=== PATIENT | female | born 1955 | race Caucasian/White ===

== ENCOUNTER 2016-09-15 19:17 | Emergency (ER) | payer BC ==
[2016-09-15 19:36] VITALS: RESP 18; TEMP 98.7
--- NOTE | 2016-09-15 19:48 | ED ---
General Adult HPI - General Chief complaint: Fall Stated complaint: Fall/foot & wrist pain Time Seen by Provider: 09/15/16 19:37 Source: patient, family, RN notes reviewed Mode of arrival: ambulatory Limitations: no limitations - History of Present Illness Initial comments: Patient is a 61-year-old female who presents emergency room today with chief complaint of fall occurred approximately one hour ago. Does admit that she was rehana taping something did not see a step fell down onto the right side. Does admit that she injured her right foot and right wrist. Doesn't smoke of the right eyebrow. Denies any other complaints or associated symptoms. Denies any loss consciousness. Patient denies any neck pain back pain. Denies any other complaints or associated symptoms. Does admit that her right foot and right wrist worse with certain movements. Patient denies any recent fever, chills, shortness of breath, chest pain, back pain, abdominal pain, nausea or vomiting, numbness or tingling, dysuria or hematuria, constipation or diarrhea, headaches or visual changes, or any other complaints. - Related Data Home Medications Medication Instructions Recorded Confirmed Atorvastatin Calcium [Lipitor] 20 mg PO QAM 09/15/16 09/15/16 Cholecalciferol [Vitamin D3] 1,000 unit PO DAILY 09/15/16 09/15/16 Ubidecarenone [Co Q-10] 100 mg PO DAILY 09/15/16 09/15/16 Vitamin E (Dl,Tocopheryl Acet) 400 unit PO DAILY 09/15/16 09/15/16 [Vitamin E] Previous Rx's Medication Instructions Recorded Hydrocodone/Acetaminophen [[place] 1 each PO Q6HR PRN #20 tab 09/15/16 5-325] Allergies Allergy/AdvReac Type Severity Reaction Status Date / Time codeine AdvReac Hallucinati Verified 09/15/16 20:07 ons Review of Systems ROS Statement: Those systems with pertinent positive or pertinent negative responses have been documented in the HPI. ROS Other: All systems not noted in ROS Statement are negative. Past Medical History Past Medical History: Hyperlipidemia History of Any Multi-Drug Resistant Organisms: None Reported Past Surgical History: Tonsillectomy Past Psychological History: No Psychological Hx Reported Smoking Status: Never smoker Past Alcohol Use History: Occasional Past Drug Use History: None Reported General Exam - General Exam Comments Initial Comments: General: The patient is awake and alert, in no distress, and does not appear acutely ill. Eye: Pupils are equal, round and reactive to light, extra-ocular movements are intact. No nystagmus. There is normal conjunctiva bilaterally. No signs of icterus. Ears, nose, mouth and throat: There are moist mucous membranes and no oral lesions. Neck: The neck is supple, there is no tenderness or JVD. Cardiovascular: There is a regular rate and rhythm. No murmur, rub or gallop is appreciated. Respiratory: Lungs are clear to auscultation, respirations are non-labored, breath sounds are equal. No wheezes, stridor, rales, or rhonchi. Musculoskeletal: Patient does have normal appearance of her right hand no sign of swelling bruising or deformity. Patient does have mild tenderness over the distal right ulna. Shows good range of motion. No tenderness down into the digits to pulses equal bilaterally 2+. Patient does have normal appearance of her foot with some bruising swelling over the top. Does have tenderness to the first and second proximal metatarsal. No tenderness to the right ankle or right knee. No tenderness to the cervical, thoracic, lumbar spine. Neurological: A&O x 3. CN II-XII intact, There are no obvious motor or sensory deficits. Coordination appears grossly intact. Speech is normal. Skin: Skin is warm and dry and no rashes or lesions are noted. Psychiatric: Cooperative, appropriate mood & affect, normal judgment. Limitations: no limitations Course Vital Signs 09/15/16 09/15/16 19:30 20:49 Temperature 98.7 F Pulse Rate 94 88 Respiratory 18 18 Rate Blood Pressure 140/74 142/85 O2 Sat by Pulse 99 100 Oximetry Medical Decision Making - Medical Decision Making X-ray reviewed does show evidence of Lisfranc fracture. Patient's CT reviewed and shows similar findings. Case was discussed with attending physician who discussed case with orthopedics on-call Dr. Herrera who recommends a padded posterior short leg splint. Splint has been placed short leg posterior OCL. Neurovascular rechecked and intact. Patient given crutches. Pain medication go home with. Advised follow-up with orthopedics tomorrow morning. Disposition Clinical Impression: Lisfranc fracture Disposition: HOME SELF-CARE Condition: Good Instructions: Foot Fracture in Adults (ED) Additional Instructions: Please follow-up with orthopedics tomorrow morning. Please continue ice elevate. The splint placed and use crutches with nonweightbearing until follow- up. Please return to emergency room for any other concerns. Prescriptions: Hydrocodone/Acetaminophen [[place] 5-325] 1 each PO Q6HR PRN #20 tab PRN Reason: Pain Referrals: Isma Cowart MD [Primary Care Provider] - 1-2 days Gonzalo Herrera MD [STAFF PHYSICIAN] - 1-2 days Time of Disposition: 21:21
--- NOTE | 2016-09-15 20:08 | XR ---
EXAMINATION TYPE: XR wrist complete RT DATE OF EXAM: 09/15/2016 CLINICAL HISTORY: Fall injury with pain. TECHNIQUE: Frontal, lateral, scaphoid, and oblique images of the right wrist are obtained. COMPARISON: None FINDINGS: Osseous structures are demineralized. There is no acute fracture/dislocation evident in th e right wrist. The joint spaces in the right wrist appear within normal limits. Subchondral cystic c hange in distal ulna and lunate bone is felt present. The overlying soft tissue appears unremarkable . IMPRESSION: There is no acute fracture or dislocation in the right wrist.
--- NOTE | 2016-09-15 20:08 | XR ---
EXAMINATION TYPE: XR foot complete RT DATE OF EXAM: 09/15/2016 CLINICAL HISTORY: Fall injury with pain. TECHNIQUE: Frontal, lateral, and oblique images of the right foot are obtained. COMPARISON: None FINDINGS: There is suspicious widening at base of first metatarsal relative to the second metatarsal . Some ill-defined ossification is present at this level. Osseous structures are demineralized. Flexi on in the toes is noted. There is positioning distal fifth toe is seen. The overlying soft tissue ap pears unremarkable. IMPRESSION: There is suspected Lisfranc divergent injury midfoot level. Orthopedic follow-up advised . Consider MRI evaluation.
[2016-09-15] MEDS ORDERED: HYDROcodone/APAP 5-325MG 1 EACH TAB PO STA (20:43)
[2016-09-15 20:50] VITALS: BP 142/85; PULSE 88
--- NOTE | 2016-09-15 20:50 | CT ---
EXAMINATION TYPE: CT foot RT wo con DATE OF EXAM: 09/15/2016 COMPARISON: Same day right foot x-ray. HISTORY: Fall today. Medial to mid foot pain. CT DLP: 228.00 mGycm Automated exposure control for dose reduction was used. FINDINGS: Correlating with x-ray abnormality there is displacement of first metatarsal laterally from medial cu neiform. There is abnormal widening between first and second metatarsals. There are multiple small os sific fracture fragments identified. There is suspected some comminuted acute at base of second and third metatarsals. Fracture through the plantar aspect of the middle cuneiform is present. Additional comminuted fracture through distal lateral cuneiform is likely present. All findings correlate with x-ray of acute divergent Lisfranc fracture injury. Associated soft tissue swelling is seen. IMPRESSION: ACUTE MID FOOT LISFRANC DIVERGENT FRACTURE INJURY NOTED DETAILED ABOVE. ORTHOPEDIC REFERRAL ADVISE Ming
== END 2016-09-15 21:31 | disposition home or self-care (01) ==
LOC: EC 19:17
DX: S92.201A Fracture of unspecified tarsal bone(s) of right foot, initial encounter for closed fracture (principal); S69.91XA Unspecified injury of right wrist, hand and finger(s), initial encounter; E78.5 Hyperlipidemia, unspecified; Z79.899 Other long term (current) drug therapy; Z88.5 Allergy status to narcotic agent; W18.39XA Other fall on same level, initial encounter; Y93.41 Activity, dancing
CPT/HCPCS: 29515; 99284

== ENCOUNTER 2016-09-29 12:24 | Day surgery (SDC) | payer BC ==
[2016-09-24 15:05] VITALS: BMI 26.6
--- NOTE | 2016-09-24 16:23 | CONS ---
CHIEF COMPLAINT: Consultation regarding medical evaluation. HISTORY OF PRESENT ILLNESS: This is a 61-year-old female who is scheduled to undergo right foot surgery. The patient injured her foot on 09/15/16. The patient has been followed by Dr. Hoyt for a right foot Lisfranc fracture dislocation injury to the right foot. The patient also has sprained right hand. No fractures in her hand. It was a freak accident. She was taking some pictures of the butts, slipped and fell. Did not lose consciousness. Did injure her face due to her glasses. No chest injury. The patient, since this fall, has had no other complications or problems. PAST MEDICAL HISTORY: Significant for history of hyperlipidemia on medical therapy, history of diverticulosis. Otherwise, no history of any lung disease, liver disease, kidney disease, ulcers, TB, hepatitis. No history of any rheumatic fever, myocardial infarction or CVA. PAST SURGICAL HISTORY: Significant for left plantar wart surgery and some skin lesion excisions. Previous colonoscopy 2005. She does get a mammogram annually which she is past due this year. PERSONAL HISTORY: Nonsmoker. Alcohol occasional. VACCINATIONS: Recently completed. ALLERGIES: Codeine causes her confusion. MEDICATIONS: Include Lipitor 20 mg daily, vitamin D and fish oil. SOCIAL HISTORY: Patient . She runs a business. FAMILY MEDICAL HISTORY: Father at age of 79. He had hypertension, CVA, Ca of the prostate. Mother at age of 80. She had acoustic neuroma. A brother 74 with a history of coronary artery disease. A brother 66 with diabetes and Ca of the prostate. A sister 69 with a previous history of pulmonary embolism, doing okay. A sister 64 in good health. Patient has a son 31 in good health. REVIEW OF SYSTEMS: NEURO: Denies any headaches, dizziness, double vision, blurred vision. No symptoms of TIA, syncope or seizures. PSYCH: No anxiety. CARDIAC: No chest pain, angina, palpitations. RESPIRATORY: No shortness of breath, cough, hemoptysis. GI: No nausea, vomiting, abdominal pain, diarrhea. Did have some constipation with pain medication which resolved. : No symptoms of dysuria, hematuria, urgency or frequency. EXTREMITIES: Denies pain. At present she has the right foot in an immobilizer and right wrist in an immobilizer. CONSTITUTIONAL: No fever or chills. SKIN: No open sores or recent infections. ORAL: Dental maintained with no infections. Intact dentition. HEARING: Adequate. EYES: Adequate vision. MUSCULOSKELETAL: Mild arthritic chronic symptoms. PHYSICAL EXAMINATION: Pleasant female in no distress. VITAL SIGNS: Reveal heart rate 95, blood pressure 130/80, afebrile, respirations 16. HEENT: Normocephalic. Neck is supple. Pupils reactive. Nose is clear. Oral cavity is moist. Ears reveal no drainage. Dentition well maintained. NECK: Reveals no JVD, carotid bruits or thyromegaly. CHEST: Clear to auscultation and percussion. CARDIAC: Normal S1/S2. No gallops, murmurs or rubs. ABDOMEN: Soft. No palpable masses. Bowel sounds normal. No organomegaly, no abdominal bruits. EXTREMITIES: Right lower extremity in an immobilizing cast. The toes are nice, warm and intact sensations. Left leg and upper extremity have good range of motion. LABORATORY ASSESSMENT: EKG which reveals sinus rhythm, 95, otherwise no acute changes. Possible left atrial abnormality. Lab work is pending. ASSESSMENT: 1. Hyperlipidemia, on medical therapy. 2. Status post fall. 3. Fracture, right foot. PLAN: Patient at present is stable to undergo the planned surgical procedure. Labs drawn today and sent in, will be checked prior to surgery. Patient's condition discussed with the patient. Prognosis guarded. MTDD
[~2016-09-29 12:24] MED LIST: DEXAMETHASONE SOD PHOSPHATE 10 MG/ML 1 ML VIAL IV ONE; HYDROmorphone 1 MG/ML 1 ML SYRINGE IVP PRN; MIDAZOLAM 2 MG/2 ML VIAL IV PRN; ONDANSETRON 4 MG/2 ML VIAL IVP ONE; SCOPOLAMINE 1.5MG/72HR PATCH TRANSDERM ONE; ceFAZolin 2 GM in SODIUM CHLORIDE 0.9% 100 ML IVPB ONE
[2016-09-29] MEDS: LACTATED RINGERS 1,000 ML IV SCH (13:07)
[2016-09-29] MEDS ORDERED: LIDOCAINE 1% 20 ML VIAL (10MG/ML) FOR IV START INTRADERMA ONE (13:13)
[2016-09-29] MEDS ORDERED: PROPOFOL 10 MG/ML 20 ML VIAL IV ONE (14:07)
[2016-09-29] MEDS ORDERED: fentaNYL (PF) 50 MCG/ML 2 ML AMP ONE (14:07)
[2016-09-29] MEDS ORDERED: KETAMINE 10 MG/ML 20 ML VIAL ONE (14:07)
[2016-09-29] MEDS ORDERED: NEOSTIGMINE 1 MG/ML 10 ML VIAL ONE (14:07)
[2016-09-29] MEDS ORDERED: ROCURONIUM BROMIDE 10 MG/ML 10 ML VIAL IV ONE (14:07)
[2016-09-29] MEDS ORDERED: HYDROmorphone (PF) 1 MG/ML ONE (14:07)
[2016-09-29] MEDS ORDERED: LIDOCAINE 1% INJ 10MG/ML (20 ML MDV) ONE (14:07)
[2016-09-29] MEDS ORDERED: GLYCOPYRROLATE 0.2 MG/ML 2 ML VIAL ONE (14:07)
[2016-09-29] MEDS ORDERED: MIDAZOLAM 2 MG/2 ML VIAL ONE (14:07)
[2016-09-29] MEDS ORDERED: SUCCINYLCHOLINE CHLORIDE 100 MG/5 ML SYR IV ONE (14:07)
[2016-09-29] MEDS ORDERED: ceFAZolin 1,000 MG in SODIUM CHLORIDE 0.9% 1,000 ML IRRIGATION ONE (14:41)
[2016-09-29] MEDS ORDERED: LACTATED RINGERS 1,000 ML IV ONE (15:15)
[2016-09-29] MEDS ORDERED: HYDROcodone/APAP 5-325MG 1 EACH TAB PO PRN (18:12)
[2016-09-29] MEDS ORDERED: DIAZEPAM 5 MG TAB PO PRN (18:12)
[2016-09-29] MEDS ORDERED: HYDROmorphone 1 MG/ML 1 ML SYRINGE IVP PRN ×2 (18:12)
[2016-09-29] MEDS ORDERED: NALOXONE 0.4 MG/ML 1 ML VIAL IV PRN (18:12)
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
[2016-09-29] MEDS ORDERED: ROPIVACAINE 5 MG/ML 30 ML VIAL MISCELLANE ONE (18:47)
--- NOTE | 2016-09-29 19:03 | P.ONQ ---
Anesthesiology Proc Note - PNB - Peripheral Nerve Block Performed Right Popliteal Indication: Acute Post-Operative Pain, Dx/Pain Location (braksma) Sedation Type: Sedate with meaningful contact maintained Preparation: Sterile Prep Position: Supine (lateral) Needle Types: Other (see comment) (arrow) Needle Size: 50mm (2") Needle Gauge: 20 Technique: Ultrasound Injectate: 0.5% Ropivacaine (see comment for volume) (22cc) Blood Aspirated: No Pain Paresthesia on Injection Noted: No Resistance on Injection: Normal Events: Uneventful and Well Tolerated
--- NOTE | 2016-09-29 19:09 | XR ---
EXAMINATION TYPE: XR foot complete RT DATE OF EXAM: 09/29/2016 COMPARISON: 09/15/2016 HISTORY: Open reduction internal fixation of a right Lisfranc fracture of the first, second and third metatarsals. TECHNIQUE: 2.02 minutes of fluoroscopy time was utilized and 10 images were taken although not submit gasper for interpretation. FINDINGS/IMPRESSION: Intraoperative fluoroscopy performed by an outside department.
--- NOTE | 2016-09-29 19:19 | FL ---
EXAMINATION TYPE: XR foot complete RT DATE OF EXAM: 09/29/2016 COMPARISON: 09/15/2016 HISTORY: Open reduction internal fixation of a right Lisfranc fracture of the first, second and third metatarsals. TECHNIQUE: 2.02 minutes of fluoroscopy time was utilized and 10 images were taken although not submit gasper for interpretation. FINDINGS/ IMPRESSION: Intraoperative fluoroscopy performed by an outside department
[2016-09-29] MEDS ORDERED: SENNOSIDES-DOCUSATE SODIUM 1 EACH TAB PO SCH (21:00)
[2016-09-29] MEDS: SODIUM CHLORIDE 0.9% 1,000 ML IV SCH (23:22)
[2016-09-29] MEDS: CALCIUM CARBONATE 500 MG CHEWABLE PO SCH (23:23)
[2016-09-29] MEDS: ceFAZolin 2 GM in SODIUM CHLORIDE 0.9% 100 ML IVPB SCH (23:24)
[2016-09-30] MEDS: ceFAZolin 2 GM in SODIUM CHLORIDE 0.9% 100 ML IVPB SCH (08:26)
[2016-09-30] MEDS: CALCIUM CARBONATE 500 MG CHEWABLE PO SCH (08:26)
[2016-09-30 08:34] VITALS: BP 108/54; PULSE 83; RESP 18; TEMP 98
[2016-09-30] MEDS ORDERED: ENOXAPARIN 40 MG/0.4 ML SYRINGE SQ SCH (09:00)
[2016-09-30] MEDS ORDERED: ATORVASTATIN 20 MG TAB PO SCH (09:00)
--- NOTE | 2016-09-30 10:08 | P.DS ---
Providers Expected date of discharge: 09/30/16 Attending physician: Calin Hoyt Primary care physician: Isma Cowart - Discharge Diagnosis(es) (1) Lisfranc fracture Current Visit: No Status: Acute Hospital Course: This is a 61-year-old female who sustained a closed right Lisfranc fracture dislocation to the right foot after a fall. The patient presents for evaluation. After discussion and consideration patient elects to proceed with ORIF of second and third tarsometatarsal joint for unstable Lisfranc injury. The patient is seen preoperatively by Dr. Hoyt and cleared for surgery. Patient is admitted to [facility] on 09/29/2016 for ORIF of second and third tarsometatarsal joint for unstable Lisfranc injury. The procedures performed without complication or sequelae. The patient is doing well postoperatively. Labs and vital signs are stable on day of discharge. On day of discharge patient's splint to the right lower extremity is intact. Capillary refill to the toes is normal at less than 2 seconds. Sensation intact. Neurovascular status to the right lower extremity is intact. Patient is discharged home in good condition. Please see med rec for accurate list of home medications. Plan - Discharge Summary New Discharge Prescriptions: New Aspirin 325 mg PO BID #60 tab Docusate [Colace] 100 mg PO DAILY #20 capsule HYDROcodone/APAP 7.5-325MG [[place] 7.5-325] 1 - 2 tab PO Q4-6H PRN #60 tab PRN Reason: Pain No Action Atorvastatin Calcium [Lipitor] 20 mg PO QAM Cholecalciferol [Vitamin D3] 1,000 unit PO DAILY Vitamin E (Dl,Tocopheryl Acet) [Vitamin E] 400 unit PO DAILY Ubidecarenone [Co Q-10] 100 mg PO DAILY Hydrocodone/Acetaminophen [[place] 5-325] 1 each PO Q6HR PRN #20 tab PRN Reason: Pain HYDROcodone/APAP 10-325MG [[place] 10-325] 1 tab PO Q6H PRN PRN Reason: Pain Discharge Medication List Atorvastatin Calcium [Lipitor] 20 mg PO QAM 09/15/16 [History] Cholecalciferol [Vitamin D3] 1,000 unit PO DAILY 09/15/16 [History] Hydrocodone/Acetaminophen [[place] 5-325] 1 each PO Q6HR PRN #20 tab 09/15/16 [Rx] Ubidecarenone [Co Q-10] 100 mg PO DAILY 09/15/16 [History] Vitamin E (Dl,Tocopheryl Acet) [Vitamin E] 400 unit PO DAILY 09/15/16 [History] HYDROcodone/APAP 10-325MG [[place] 10-325] 1 tab PO Q6H PRN 09/24/16 [History] Aspirin 325 mg PO BID #60 tab 09/30/16 [Rx] Docusate [Colace] 100 mg PO DAILY #20 capsule 09/30/16 [Rx] HYDROcodone/APAP 7.5-325MG [[place] 7.5-325] 1 - 2 tab PO Q4-6H PRN #60 tab [Rx] Follow up Appointment(s)/Referral(s): Calin Hoyt MD [Medical Doctor] - 10 Days Activity/Diet/Wound Care/Special Instructions: Please stay nonweightbearing to the right lower extremity. Please keep splint clean, dry and intact. Rest, ice and elevate the right lower extremity. Please take all medications as prescribed. Please call [facility] with any questions or concerns. [phone] Discharge Disposition: HOME SELF-CARE
[2016-09-30] MEDS: LACTATED RINGERS 1,000 ML IV SCH (10:20)
[2016-09-30] MEDS: SODIUM CHLORIDE 0.9% 1,000 ML IV SCH (10:21)
[2016-09-30] MEDS ORDERED: CHOLECALCIFEROL 1,000 UNIT TAB PO SCH (12:00)
[2016-09-30] MEDS ORDERED: MULTIVITAMINS, THERA 1 EACH TAB PO SCH (12:00)
== END 2016-09-30 12:25 | disposition home or self-care (01) ==
LOC: OR 12:24 → 5ONC 18:03 → OR 09-30 12:25
PROVIDERS: ATTEND Orthopaedic Surgery
DX: S92.311A Displaced fracture of first metatarsal bone, right foot, initial encounter for closed fracture (principal); S92.321A Displaced fracture of second metatarsal bone, right foot, initial encounter for closed fracture; S92.331A Displaced fracture of third metatarsal bone, right foot, initial encounter for closed fracture; W01.0XXA Fall on same level from slipping, tripping and stumbling without subsequent striking against object, initial encounter; Y93.89 Activity, other specified; Y92.828 Other wilderness area as the place of occurrence of the external cause; M24.571 Contracture, right ankle; M85.871 Other specified disorders of bone density and structure, right ankle and foot; S63.91XD Sprain of unspecified part of right wrist and hand, subsequent encounter; E78.5 Hyperlipidemia, unspecified; Z79.1 Long term (current) use of non-steroidal anti-inflammatories (NSAID); Z79.891 Long term (current) use of opiate analgesic; Z79.899 Other long term (current) drug therapy; Z88.5 Allergy status to narcotic agent
CPT/HCPCS: 97161; 82306; 73630; 27687; 28485 ×3; C1713; J2250; J1100; J2710; J0690 ×3; J2405; J2001; J1650; J3010; J1170; J2795; J0330; J2704

== ENCOUNTER → 2017-11-03 | Outpatient (CLI) | payer BC ==
--- NOTE | 2017-11-03 12:26 | US ---
EXAMINATION TYPE: US carotid duplex BILAT DATE OF EXAM: 11/03/2017 COMPARISON: NONE CLINICAL HISTORY: I65.29 Carotid Atherosclerosis. EXAM MEASUREMENTS: RIGHT: Peak Systolic Velocity (PSV) cm/sec ----- Right CCA: 170.6 ----- Right ICA: 161.7 ----- Right ECA: 143.1 ICA/CCA ratio: 0.9 RIGHT: End Diastole cm/sec ----- Right CCA: 26.8 ----- Right ICA: 57.2 ----- Right ECA: 15.3 LEFT: Peak Systolic Velocity (PSV) cm/sec ----- Left CCA: 101.1 ----- Left ICA: 101.6 ----- Left ECA: 150.8 ICA/CCA ratio: 1.0 LEFT: End Diastole cm/sec ----- Left CCA: 20.4 ----- Left ICA: 32.1 ----- Left ECA: 13.7 VERTEBRALS (direction of flow): Right Vertebral: Antegrade Left Vertebral: Antegrade Rhythm: Normal Tortuous ICAs visualized bilaterally. Mild amount of plaque visualized bilateral bulbs. Elevated velo cities visualized in right distal CCA, right bulb, right distal ICA, and right ECA. Elevated velociti es visualized in the left ECA. IMPRESSION: 1. Mild atherosclerotic changes with no significant hemodynamic stenosis. Criteria for Assigning % of Stenosis / Diameter reduction (Estimation based on the indirect measurements of the internal carotid artery velocities (ICA PSV). 1. Normal (no stenosis)=ICA PSV < 125 cm/s: ratio < 2.0: ICA EDV<40 cm/s. 2. Less than 50% stenosis=ICA PSV < 125 cm/s: ratio < 2.0: ICA EDV<40 cm/s. 3. 50 to 69% stenosis=ICA PSV of 125 to 230 cm/s: ration 2.0 ? 4.0: ICA EDV 40-100 cm/s. 4. Greater than 70% stenosis to near occlusion= ICA PSV > 230 cm/s: ratio > 4.0: ICA EDV > 100 cm/s. 5. Near occlusion= ICA PSV velocities may be low or undetectable: variable ratio and ICA EDV. 6. Total occlusion=unable to detect flow.
--- NOTE | 2017-11-03 14:33 | BD ---
EXAMINATION TYPE: Axial Bone Density DATE OF EXAM: 11/03/2017 COMPARISON: 10/02/2015 CLINICAL HISTORY: Postmenopausal female Height: 65.5 IN Weight: 181 LBS FRAX RISK QUESTIONS: History of Fracture in Adulthood: YES LT FOOT AGE 57 AND RT FOOT AGE 61 Secondary Osteoporosis: RISK FACTORS HISTORY OF: Family History of Osteoporosis: YES MOTHER Active: YES Diet low in dairy products/other sources of calcium: YES Postmenopausal woman: AGE 54 MEDICATIONS: Additional Medications: CALCIUM, VIT D, LIPITOR, EXAM MEASUREMENTS: Bone mineral densitometry was performed using the [employer]. Bone mineral density as measured about the Lumbar spine is: ----- L1-L4(G/cm2): 0.963 T Score Values are as follows: ----- L2: -2.1 ----- L3: -2.1 ----- L4: -1.3 ----- L1-L4: -1.8 Bone mineral density has: Increased 1.1% since study of: 10/02/2015 Bone mineral density about the R hip (g/cm2): 0.813 Bone mineral density about the L hip (g/cm2): 0.815 T Score values are as follows: -----R Neck: -1.6 -----L Neck: -1.6 -----R Total: -1.8 -----L Total: -1.1 Bone mineral density has: Decreased -6.1% since study of: 10/12/2015 IMPRESSION: Osteopenia (T Score between -2.5 and -1). There is slightly increased risk of fracture and the patient may be considered for treatment. Re-Screen 2-5 years. NOTE: T-SCORE=SD OF THE YOUNG ADULT MEAN.
--- NOTE | 2017-11-04 12:06 | MM ---
Reason for exam: screening (asymptomatic). Last mammogram was performed 2 years and 1 month ago. History: Patient is postmenopausal. Physical Findings: A clinical breast exam by your physician is recommended on an annual basis and results should be correlated with mammographic findings. MG 3D Screening Mammo W/Cad Bilateral CC and MLO view(s) were taken. Prior study comparison: October 02, 2015, bilateral MG screening mammo w CAD. August 18, 2013, bilateral MG screening mammo w CAD. There are scattered fibroglandular densities. There is no discrete abnormality. No significant changes when compared with prior studies. ASSESSMENT: Negative, BI-RAD 1 RECOMMENDATION: Routine screening mammogram of both breasts in 1 year.
== END | disposition home or self-care (01) ==
LOC: RADUSWWP 11:54
PROVIDERS: ATTEND Internal Medicine
DX: Z12.31 Encounter for screening mammogram for malignant neoplasm of breast (principal); M85.80 Other specified disorders of bone density and structure, unspecified site; I65.23 Occlusion and stenosis of bilateral carotid arteries; Z78.0 Asymptomatic menopausal state
CPT/HCPCS: 77063; 77067; 77080; 93880

== ENCOUNTER → 2019-12-08 | Outpatient (CLI) | payer BC ==
--- NOTE | 2019-12-09 13:27 | MM ---
Reason for exam: screening (asymptomatic). Last mammogram was performed 2 years and 1 month ago. History: Patient is postmenopausal. Physical Findings: A clinical breast exam by your physician is recommended on an annual basis and results should be correlated with mammographic findings. MG 3D Screening Mammo W/Cad Bilateral CC and MLO view(s) were taken. Prior study comparison: November 03, 2017, bilateral MG 3d screening mammo w/cad. October 02, 2015, bilateral MG screening mammo w CAD. The breast tissue is almost entirely fat. No significant changes when compared with prior studies. ASSESSMENT: Benign, BI-RAD 2 RECOMMENDATION: Routine screening mammogram of both breasts in 1 year.
== END | disposition home or self-care (01) ==
LOC: RADMAMWWP 07:39
PROVIDERS: ATTEND Obstetrics & Gynecology
DX: Z12.31 Encounter for screening mammogram for malignant neoplasm of breast (principal); M89.9 Disorder of bone, unspecified
CPT/HCPCS: 77063; 77067

== ENCOUNTER → 2021-02-06 | Outpatient (CLI) | payer BC ==
--- NOTE | 2021-02-06 12:52 | US ---
EXAMINATION TYPE: US carotid duplex BILAT DATE OF EXAM: 02/06/2021 COMPARISON: CLINICAL HISTORY: I65.23 Carotid Stenosis. Patient states her blood pressure has been going up. EXAM MEASUREMENTS: RIGHT: Peak Systolic Velocity (PSV) cm/sec ----- Right CCA: 114.2 ----- Right ICA: 131.9 ----- Right ECA: 141.7 ICA/CCA ratio: 1.2 RIGHT: End Diastole cm/sec ----- Right CCA: 24.1 ----- Right ICA: 55.0 ----- Right ECA: 17.5 LEFT: Peak Systolic Velocity (PSV) cm/sec ----- Left CCA: 106.9 ----- Left ICA: 182.6 ----- Left ECA: 117.3 ICA/CCA ratio: 1.7 LEFT: End Diastole cm/sec ----- Left CCA: 26.7 ----- Left ICA: 61.8 ----- Left ECA: 13.9 VERTEBRALS (direction of flow): Right Vertebral: Antegrade Left Vertebral: Antegrade Rhythm: Normal Plaque in bilateral bulbs. No significant stenosis. Tortuous left ICA at mid/distal ICA region. El evated left CCA, left distal ICA and Right ECA velocities. No wall thickening. IMPRESSION: 1. Bilateral atherosclerotic changes with findings suggestive of no significant hemodynamic stenoses. Criteria for Assigning % of Stenosis / Diameter reduction (Estimation based on the indirect measurements of the internal carotid artery velocities (ICA PSV). 1. Normal (no stenosis)=ICA PSV < 125 cm/s: ratio < 2.0: ICA EDV<40 cm/s. 2. Less than 50% stenosis=ICA PSV < 125 cm/s: ratio < 2.0: ICA EDV<40 cm/s. 3. 50 to 69% stenosis=ICA PSV of 125 to 230 cm/s: ration 2.0 ? 4.0: ICA EDV 40-100 cm/s. 4. Greater than 70% stenosis to near occlusion= ICA PSV > 230 cm/s: ratio > 4.0: ICA EDV > 100 cm/s. 5. Near occlusion= ICA PSV velocities may be low or undetectable: variable ratio and ICA EDV. 6. Total occlusion=unable to detect flow.
--- NOTE | 2021-02-07 10:39 | ECHOF ---
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 This was a technically good study. LV size, wall thickness and systolic function are normal, with an EF greater than 55%. The left chary tricular size is normal. The right ventricle is normal in size. Normal LA size by volume 22+/-6 ml/m2. The right atrial size is normal. There is mild aortic regurgitation. Mild mitral regurgitation is present. Mild tricuspid regurgitation present. Right ventricular systolic pressure is normal at < 35 mmHg. There is no pulmonic regurgitation present. The aortic root size is normal. There is no pericardial effusion. CONCLUSIONS -------- 1. LV size, wall thickness and systolic function are normal, with an EF greater than 55%. 2. The left ventricular size is normal. 3. The right ventricle is normal in size. 4. Normal LA size by volume 22+/-6 ml/m2. 5. The right atrial size is normal. 6. There is mild aortic regurgitation. 7. Mild mitral regurgitation is present. 8. Mild tricuspid regurgitation present. 9. The aortic root size is normal. 10. There is no pericardial effusion. GATHERING MACHINE FEEDER: Kira Woods RDCS
== END | disposition home or self-care (01) ==
LOC: RADECHMAIN 11:40
PROVIDERS: ATTEND Internal Medicine
DX: I70.90 Unspecified atherosclerosis (principal)
CPT/HCPCS: 93306; 93880

== ENCOUNTER → 2021-10-03 | Outpatient (CLI) | payer MEDICARE, BC ==
--- NOTE | 2021-10-03 18:18 | BD ---
EXAMINATION TYPE: Axial Bone Density DATE OF EXAM: 10/03/2021 CLINICAL HISTORY: 66 years year old Female. ICD-10 CODE: Z78.0 POST MENOPAUSE,N95.1,M85.88 OTHER DIS ORDER OF BONE Height: 5 FT 5 1/2 IN Weight: 189 FRAX RISK QUESTIONS: Alcohol (3 or more units per day): NO Family History (Parent hip fracture): Glucocorticoids (More than 3mos): NO (Ex: prednisone, prednisolone, methylprednisolone, dexamethasone, and hydrocortisone). History of Fracture in Adulthood: YES Secondary Osteoporosis: 1. Type 1 Diabetes: NO 2. Hyperthyroidism: NO 3. Menopause before 45: YES 4. Malnutrition: NO 5. Chronic liver disease: NO Rheumatoid Arthritis: NO Current Tobacco Use: NO RISK FACTORS HISTORY OF: Surgery to Spine/Hip(right/left)/Wrist (right/left): NO Family History of Osteoporosis: YES Active: YES Diet low in dairy products/other sources of calcium: NO Postmenopausal woman: YES Take estrogen and/or progesterone medications: NO Lost more than 2 inches in height since high school: YES Frequent falls: NO Poor Health: GOOD Hyperparathyroidism: NO Adrenal Insufficiency: NO MEDICATIONS: Additional Medications: LIPITOR, METOPROLOL, LOSARTAN, Additional History: EXAM MEASUREMENTS: Bone mineral densitometry was performed using the [employer] System. Bone mineral density as measured about the Lumbar spine is: ----- L1-L4(G/cm2): 1.015 T Score Values are as follows: ----- L1: -1.6 ----- L2: -1.9 ----- L3: -1.4 ----- L4: -0.8 ----- L1-L4: -1.4 Bone mineral density has: INCREASED 5.6 % since study of: 2018 Bone mineral density about the R hip (g/cm2): 0.891 Bone mineral density about the L hip (g/cm2): 0.828 T Score values are as follows: -----R Neck: -1.1 -----L Neck: -1.5 -----R Total: -1.4 -----L Total: -0.8 Bone mineral density has: INCREASED 5.3 % since study of: 2018 FRAX%s: The graph provided illustrates a 14.2 % chance for a major osteoporotic fx and a 1.5 % chance for the hips probability for fx in 10 years time. IMPRESSION: Osteopenia (T Score between -2.5 and -1). There is slightly increased risk of fracture and the patient may be considered for treatment. Re-Screen 2-5 years. NOTE: T-SCORE=SD OF THE YOUNG ADULT MEAN.
--- NOTE | 2021-10-04 15:50 | MM ---
Reason for Exam: Screening (asymptomatic). Last mammogram was performed 1 year(s) and 10 month(s) ago. Patient History: Menarche at age 14. First Full-Term at age 29. Postmenopausal. Risk Values: Melissa 5 year model risk: 1.8%. NCI Lifetime model risk: 6.9%. Prior Study Comparison: 10/02/2015 Bilateral Screening Mammogram, [facility]. 11/03/2017 Bilateral Screening Mammogram, [facility]. 12/08/2019 Bilateral Screening Mammogram, [facility]. Tissue Density: The breast tissue is almost entirely fat. Findings: Analyzed By CAD. No suspicious groups of microcalcifications, spiculated or lobular masses, architectural distortion or other secondary signs of malignancy are mammographically apparent. Overall Assessment: Negative, BI-RAD 1 Management: Screening Mammogram of both breasts in 1 year. A negative mammogram report should not preclude additional follow up of suspicious palpable abnormalities. Patient should continue monthly self breast exam. A clinical breast exam by your physician is recommended on an annual basis and results should be correlated with mammographic findings. Electronically signed and approved by: Ruy Cash D.O. Radiologis
== END | disposition home or self-care (01) ==
LOC: RADBDWWP 14:07
PROVIDERS: ATTEND Obstetrics & Gynecology
DX: Z12.31 Encounter for screening mammogram for malignant neoplasm of breast (principal); N95.1 Menopausal and female climacteric states; M85.88 Other specified disorders of bone density and structure, other site
CPT/HCPCS: 77063; 77067; 77080

== ENCOUNTER → 2022-01-31 | Outpatient (CLI) | payer MEDICARE, BC ==
--- NOTE | 2022-01-31 09:29 | FL ---
EXAMINATION TYPE: FL barium swallow DATE OF EXAM: 01/31/2022 CLINICAL HISTORY: Dysphagia. TECHNIQUE: A double contrast esophagram is performed utilizing air and barium. A total of 40 second s of fluoroscopic time was utilized during procedure and 42 images obtained COMPARISON: None FINDINGS: The esophagus shows normal motility and emptying into the stomach. No proximal diverticulum . No evidence of fixed hiatal hernia or stricture noted. No Intraluminal mass. No significant gastroe sophageal reflux was seen during real time performance of this study. IMPRESSION: No significant abnormality is seen to account for patient's symptoms.
== END | disposition home or self-care (01) ==
LOC: RADUSWWP 08:27
PROVIDERS: ATTEND Internal Medicine
DX: R13.19 Other dysphagia (principal)
CPT/HCPCS: 74220

== ENCOUNTER 2023-02-21 16:38 | Emergency (ER) | payer MEDICARE, BC ==
[2023-02-21 16:42] VITALS: RESP 16; TEMP 97.9
[2023-02-21] MEDS ORDERED: IBUPROFEN 400 MG TAB PO STA (17:01)
[2023-02-21] MEDS ORDERED: ACETAMINOPHEN TAB 325 MG TAB PO STA (17:01)
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
--- NOTE | 2023-02-21 17:22 | XR ---
EXAMINATION TYPE: XR knee complete RT DATE OF EXAM: 02/21/2023 5:10 PM CLINICAL INDICATION:Female, 67 years old with history of injury; [facility] COMPARISON: None. TECHNIQUE: XR knee complete RT; examined in Frontal, lateral and oblique projections. FINDINGS: No evidence of any acute osseous pathology, or soft tissue swelling . A fabella is presen t. There is a small joint effusion present. Tricompartmental osteophyte formation involving the femoral condyles, tibial plateau and patella. Mi ld joint space narrowing. IMPRESSION: 1. No acute osseous pathology. 2. Small joint effusion with Mild tricompartmental osteoarthritic changes. Consider further evaluatio n with MRI.
[2023-02-21 20:39] VITALS: BP 160/80; PULSE 80
== END 2023-02-21 18:30 | disposition home or self-care (01) ==
LOC: EC 16:38
DX: S83.91XA Sprain of unspecified site of right knee, initial encounter (principal); I10 Essential (primary) hypertension; E78.5 Hyperlipidemia, unspecified; Z88.5 Allergy status to narcotic agent; Z79.899 Other long term (current) drug therapy; X58.XXXA Exposure to other specified factors, initial encounter
CPT/HCPCS: 99283

== ENCOUNTER → 2023-09-01 | Outpatient (CLI) | payer MEDICARE, BC ==
--- NOTE | 2023-09-01 18:14 | US ---
EXAMINATION TYPE: US carotid duplex BILAT DATE OF EXAM: 09/01/2023 COMPARISON: 02/06/21 CLINICAL INDICATION: Female, 68 years old with history of I65.23 Carotid stenosis; hx of stenosis TECHNIQUE: Carotid duplex ultrasound examination. Indirect Doppler criteria was utilized. FINDINGS: EXAM MEASUREMENTS: RIGHT: Peak Systolic Velocity (PSV) cm/sec ----- Right CCA: 109 ----- Right ICA: 138 ----- Right ECA: 108 ICA/CCA ratio: 1.27 RIGHT: End Diastole cm/sec ----- Right CCA: 21.1 ----- Right ICA: 40.1 ----- Right ECA: 12.1 LEFT: Peak Systolic Velocity (PSV) cm/sec ----- Left CCA: 111 ----- Left ICA: 200 ----- Left ECA: 119 ICA/CCA ratio: 1.8 LEFT: End Diastole cm/sec ----- Left CCA: 29.4 ----- Left ICA: 64.6 ----- Left ECA: 8.72 VERTEBRALS (direction of flow): Right Vertebral: Antegrade Left Vertebral: Antegrade Rhythm: Normal CHICKEN DRESSER NOTES: Left ICA is tortuous and has an elevated velocity of 200 cm/s IMPRESSION: 50-69% stenosis of the bilateral carotid bifurcations by peak systolic velocity Criteria for Assigning % of Stenosis / Diameter reduction (Estimation based on the indirect measurements of the internal carotid artery velocities (ICA PSV). 1. Normal (no stenosis)=ICA PSV < 125 cm/s: ratio < 2.0: ICA EDV<40 cm/s. 2. Less than 50% stenosis=ICA PSV < 125 cm/s: ratio < 2.0: ICA EDV<40 cm/s. 3. 50 to 69% stenosis=ICA PSV of 125 to 230 cm/s: ration 2.0 ? 4.0: ICA EDV 40-100 cm/s. 4. Greater than 70% stenosis to near occlusion= ICA PSV > 230 cm/s: ratio > 4.0: ICA EDV > 100 cm/s. 5. Near occlusion= ICA PSV velocities may be low or undetectable: variable ratio and ICA EDV. 6. Total occlusion=unable to detect flow.
--- NOTE | 2023-09-10 07:29 | MM ---
Reason for Exam: Screening (asymptomatic). Last mammogram was performed 1 year(s) and 11 month(s) ago. Patient History: Menarche at age 14. First Full-Term at age 29. Postmenopausal. Risk Values: Melissa 5 year model risk: 1.9%. NCI Lifetime model risk: 6.4%. Prior Study Comparison: 11/03/2017 Bilateral Screening Mammogram, [facility]. 12/08/2019 Bilateral Screening Mammogram, [facility]. 10/03/2021 Bilateral MG 3D screening mammo w/cad, [facility]. Tissue Density: There are scattered areas of fibroglandular density. Findings: Analyzed By CAD. The pattern is symmetrical. No significant interval change No suspicious groups of microcalcifications, spiculated or lobular masses, architectural distortion or other secondary signs of malignancy are mammographically apparent. Overall Assessment: Benign, BI-RAD 2 Management: Screening Mammogram of both breasts in 1 year. A negative mammogram report should not preclude additional follow up of suspicious palpable abnormalities. Patient should continue monthly self breast exam. A clinical breast exam by your physician is recommended on an annual basis and results should be correlated with mammographic findings. Note on Melissa scores and lifetime risk: 1. A Melissa score greater than 3% is considered moderate risk. If this is the case, consider specialist referral to assess eligibility for a risk reducing agent. 2. If overall lifetime risk for the development of breast cancer is 20% or higher, the patient may qualify for future screening with alternating mammogram and breast MRI. Electronically signed and approved by: Ruy Cash D.O. Radiologis
== END | disposition home or self-care (01) ==
LOC: RADMAMWWP 14:31
PROVIDERS: ATTEND Internal Medicine
DX: Z12.31 Encounter for screening mammogram for malignant neoplasm of breast (principal); M85.88 Other specified disorders of bone density and structure, other site; R92.323 Mammographic fibroglandular density, bilateral breasts; I65.23 Occlusion and stenosis of bilateral carotid arteries; Z78.0 Asymptomatic menopausal state
CPT/HCPCS: 77063; 77067; 93880

== ENCOUNTER → 2023-11-02 | Outpatient (CLI) | payer MEDICARE, BC ==
[2023-11-02 17:04] LABS: African American GFR (CKD) >90 (>60 ml/min/1.73 sqM); Blood Urea Nitrogen 17 mg/dL (7-17); Non-African American GFR(CKD) >90 (>60 ml/min/1.73 sqM)
--- NOTE | 2023-11-02 20:57 | CT ---
EXAMINATION TYPE: CT head without contrast. CT angiogram head with contrast. CT angiogram neck with contrast. CT DLP: 264.9 mGycm, Automated exposure control for dose reduction was used. DATE OF EXAM: 11/02/2023 8:00 PM COMPARISON: Ultrasound 09/01/2023. CLINICAL INDICATION: Female, 68 years old with history of I65.23 OCCLUSION AND STENOSIS OF BILATERAL CAROTID; PHH, OCCLUSION AND STENOSIS OF BILATERAL CAROTID TECHNIQUE: CT of the brain without contrast followed by angiogram of the head and neck with contrast. Axially ac quired helical CT angiogram of the head and neck was obtained with contrast. Axial images are supplem ented with 3D reconstructions and MIP images which were post-processed at an independent workstation . NASCET criteria used. Contrast used:65 mL of Isovue 370 with IV Contrast, Oral contrast used: None. FINDINGS: CTA HEAD: No evidence of acute intracranial hemorrhage, mass effect, or midline shift. The ventricles, sulci, a nd cisterns are unremarkable. The visualized portions of the internal carotid arteries, middle cerebral arteries, anterior cerebral arteries, and posterior cerebral arteries are patent. The basilar and vertebral arteries are patent. CTA NECK: Right Carotid System: The common carotid artery and external carotid artery are patent. The carotid bifurcation demonstrate s no evidence of hemodynamically significant stenosis. The remaining portions of the internal carotid artery demonstrate normal size without significant narrowing. Left Carotid System: The common carotid artery and external carotid artery are patent. The carotid bifurcation demonstrate s no evidence of hemodynamically significant stenosis. The remaining portions of the internal carotid artery demonstrate normal size without significant narrowing. Vertebral arteries are patent without evidence hemodynamically significant stenosis. There is a three-vessel aortic arch. The origins of the great vessels are patent. No evidence of hemo dynamically significant stenosis. Upper thorax: IMPRESSION: 1. High velocities in prior ultrasound duplex without evidence of significant stenosis on CT. 2. No evidence of dissection of the cervical internal carotid arteries or vertebral arteries. 3. No evidence of intracranial high-grade stenosis or intracranial aneurysm. 4. No acute intracranial process.
== END | disposition home or self-care (01) ==
LOC: RADCTMAIN 16:08
PROVIDERS: ATTEND Internal Medicine
DX: I65.23 Occlusion and stenosis of bilateral carotid arteries (principal)
CPT/HCPCS: 36415; 70496; 70498; 82565; 84520